=== PATIENT | female | born 1970 | race Hispanic/Latino ===

== ENCOUNTER → 2025-08-02 | Outpatient (CLI) | payer BC ==
--- NOTE | 2025-08-02 16:35 | HMCSR ---
APPROVED REPORT EXAM: Two-dimensional and M-mode echocardiogram with Doppler and color Doppler. INDICATION ICD: R06.02 Shortness of breath 2D Dimensions RVDd 2.9 cm LVEF(%) 68.0 (>50%) LVED Vol(simp.) 59.0 mL IVSd 0.5 (0.7-1.1cm) FS(%) 38 % LVES Vol(simp.) 21.0 mL LVDd 4.3 (3.8-5.6cm) LA (2D) 2.5 (1.6-4.0cm) LVEF(%, simp.) 64 % PWd 0.8 (0.7-1.1cm) Ao Root(2D) 2.4 (2.0-3.7cm) LA ESV INDEX (BP) 14.21 mL/m2 IVSs 0.8 cm LVOT diam 2.1 (1.8-2.4cm) LVDs 2.7 (2.5-4.0cm) IVC diam 2.1 cm PWs 1.0 cm M-Mode Dimensions EPSS 0.5 cm LA (MM) 2.4 (1.6-4.0cm) Ao Root(MM) 2.5 (2.0-3.7cm) Aortic Valve AoV Vmax 1.3 m/s Ao Peak GR 6.7 mmHg LVOT Vmax 1.0 m/s AoV VTI 0.2 m Ao Mean GR 3.9 mmHg LVOT VTI 0.18 m VIRGILIO (VMAX) 2.76 cm2 VIRGILIO (VTI) 2.7 cm2 Mitral Valve MV E Vmax 83.7 cm/s DECEL Time 201 ms MV A Vmax 67.2 cm/s P 1/2 T 40 ms E/A ratio 1.2 MVA (PHT) 5.6 cm2 TDI E/E' Medial 8.0 E/E' Lateral 7.9 Medial E' Peak V 10.50 cm/s Lateral E' Peak V 10.66 cm/s Pulmonary Valve PV Vmax 0.9 m/s PV Mean GR 2.5 mmHg PV Peak GR 3.6 mmHg Tricuspid Valve TR Vmax 1.9 m/s RAP (EST) 3 mmHg RVSP 17.0 mmHg TR Peak GR 14.0 mmHg Left Ventricle The left ventricle is normal size. Normal left ventricular systolic wall motion. There is normal left ventricular wall thickness. LVEF is 60-65%. The left ventricular diastolic function is normal. Right Ventricle The right ventricle is normal size. The right ventricular systolic function is normal. Atria The left atrium size is normal. The right atrium size is normal. Aortic Valve The aortic valve is normal in structure. No aortic regurgitation is present. There is no aortic valvular stenosis. Mitral Valve The mitral valve is normal in structure. There is no mitral valve regurgitation noted. There is no mitral valve stenosis. Tricuspid Valve The tricuspid valve is normal in structure. There is trace of tricuspid valve regurgitation noted. Pulmonic Valve The pulmonary valve is normal in structure. There is no pulmonic valvular regurgitation. Great Vessels The aortic root is normal in size. The IVC is normal in size and collapses >50% with inspiration. Pericardium There is no pericardial effusion. Other Information Quality : Adequate Conclusion LVEF is 60-65%. Normal left ventricular systolic wall motion. The aortic root is normal in size. There is no pericardial effusion.
== END | disposition home or self-care (01) ==
LOC: RAH 13:33
PROVIDERS: ATTEND Internal Medicine
DX: R06.02 Shortness of breath (principal)
CPT/HCPCS: 93306